=== PATIENT | female | born 1965 | race Caucasian/White ===

== ENCOUNTER → 2020-04-04 07:04 | Outpatient (CLI) | payer OTHER, SELFPAY ==
--- NOTE | 2020-04-04 07:08 | BI_ITS ---
MAMMOGRAPHY - BILATERAL SCREENING REASON FOR EXAM: Female, 54 years old. Routine annual screening examination. PERTINENT HISTORY: Non-contributory. TECHNIQUE: Digital bilateral breast carlos (3D mammographic acquisition) in the CC and MLO projections. 2-D mediolateral oblique (MLO) and craniocaudad (CC) views of both breasts were obtained. CAD: Full Field Digital Mammography with Computer Added Detection was performed. COMPARISON: Comparison is made with prior outside examination dated 05/26/2018. FINDINGS: Breast Composition: There are scattered areas of fibroglandular density. There are no dominant masses or suspicious calcifications. There is a stable 8.9 mm nodule in the anterior upper lateral aspect of the right breast. A tissue marker is seen within the from prior biopsy. No other significant abnormalities are identified. There has been no significant change since the prior study. BI/SCREEN MAMM (CAD) W/CARLOS BILAT IMPRESSION: Stable bilateral screening mammogram. Yearly follow-up mammogram recommended. (A) ASSESSMENT CATEGORY: BIRADS Category 2: Benign. A letter regarding these results will be sent to the patient by the facility within 30 days. Approximately 10% of breast cancers are not detected by mammography. A normal mammogram should not delay biopsy of a clinically suspicious abnormality. [id number] Electronically Signed: Isaiah Rodarte, at 10:19 EST , Service support ,
== END ==
PROVIDERS: PCP Family Medicine; Referring Provider Family Medicine; Visit Provider Family Medicine
DX: Z12.31 Encounter for screening mammogram for malignant neoplasm of breast (principal)
CPT/HCPCS: 77063; 77067

== ENCOUNTER → 2021-10-23 | Outpatient (CLI) | payer OTHER, SELFPAY ==
--- NOTE | 2021-10-23 08:22 | BI_ITS ---
MAMMOGRAPHY - BILATERAL SCREENING REASON FOR EXAM: Female, 56 years old. Routine annual screening examination. PERTINENT HISTORY: Sister with breast cancer. TECHNIQUE: Digital bilateral breast carlos (3D mammographic acquisition) in the CC and MLO projections. 2-D mediolateral oblique (MLO) and craniocaudad (CC) views of both breasts were obtained. CAD: Full Field Digital Mammography with Computer Added Detection was performed. COMPARISON: Comparison is made with prior study dated 04/04/2020. FINDINGS: Breast Composition: There are scattered areas of fibroglandular density. There is a 1.1 cm nodule in the slightly upper deep lateral aspect of the right breast. Correlation with ultrasound is recommended. A tissue clip marker is once again seen within an 8 mm nodule in the anterior upper lateral aspect of the right breast. Stable small benign-appearing bilateral axillary lymph nodes. No other significant abnormalities are identified. BI/SCRN MAMM (CAD)W/CARLOS BILAT IMPRESSION: 1.1 cm nodule in the slightly upper deep lateral aspect of the right breast. Correlation with ultrasound is recommended. ASSESSMENT CATEGORY: BIRADS Category 0: Incomplete. Need additional imaging evaluation. A letter regarding these results will be sent to the patient by the facility within 30 days. Approximately 10% of breast cancers are not detected by mammography. A normal mammogram should not delay biopsy of a clinically suspicious abnormality. [id number] Electronically Signed: Isaiah Rodarte MD at 9:50 EDT ,
== END | disposition home or self-care (01) ==
LOC: OPBI 08:18
PROVIDERS: PCP Family Medicine; Visit Provider Family Medicine
DX: Z12.31 Encounter for screening mammogram for malignant neoplasm of breast (principal); Z80.3 Family history of malignant neoplasm of breast
CPT/HCPCS: 77063; 77067

== ENCOUNTER → 2021-10-28 | Outpatient (CLI) | payer OTHER, SELFPAY ==
--- NOTE | 2021-10-28 11:03 | US_ITS ---
STUDY: ULTRASOUND BREAST - RIGHT REASON FOR EXAM: Female, 56 years old. Abnormal screening mammogram. TECHNIQUE: Axial and longitudinal images of the RIGHT breast were performed with a high resolution ultrasound transducer. # OF IMAGES: 51 COMPARISON: Comparison is made with prior study dated 10/23/2021 and 04/04/2020. FINDINGS: RIGHT Breast: The lateral half of the right breast was examined by ultrasound. There is a 1 cm x 0.6 cm x 0.6 cm hypoechoic nodule at the 10 o''clock position of the breast at 5 cm from nipple. A tissue clip marker is seen within it in keeping with prior biopsy. US/Breast Limited Unilateral IMPRESSION: 1 cm x 0.6 x 0.8 cm hypoechoic nodule at the 10 o''clock position breast at 5 cm from nipple. A tissue clip marker is seen within the from prior biopsy. ASSESSMENT CATEGORY: BIRADS Category 2: Benign. A letter regarding these results will be sent to the patient by the facility within 30 days. Electronically Signed: Isaiah Rodarte MD at 13:31 EDT ,
== END | disposition home or self-care (01) ==
LOC: OPUS 11:21
PROVIDERS: PCP Family Medicine; Visit Provider Family Medicine
DX: N63.11 Unspecified lump in the right breast, upper outer quadrant (principal)
CPT/HCPCS: 76642

== ENCOUNTER → 2021-11-01 | Outpatient (CLI) | payer OTHER, SELFPAY ==
--- NOTE | 2021-11-01 09:05 | LIP_PTH ---
PATIENT: DELMIS BAIG LOC: [facility] U#:[id number] AGE/SX: 56/F ROOM: RE11/01/[address]: Dr. Serge Rushing MD : 1965 BED: DIS: 11/01/2021 SPEC #: [id number] RECD: 11/01/21 11:11 STATUS: JOHNY FABIAN #: [id number] ZOEY: 11/01/21 09:[address]: Serge Rushing DEPT: SURGICAL PATHOLOGY RECD BY: Damian Williamson ENTERED: 11/01/21 11:55 SP TYPE: LIPOMA OTHR DR: Dr. Marcos Coelho, DO Tissues: A - Soft tissues, NOS B - Soft tissues, NOS Procedures: Surgery Specimen Level III HEADER OPERATION: Excision lipoma right upper arm and left mid back PRE-OP DIAGNOSIS: Multiple lipomas TISSUE SUBMITTED: A ? Right upper arm, B ? Left mid back MICROSCOPIC DIAGNOSIS A. Right upper arm lesion, excision: Mature adipose tissue, consistent with lipoma. B. Left mid back lesion, excision: Angiolipoma. ADDIE:mone 11/04/2021 MICROSCOPIC DESCRIPTION Slides are reviewed. GROSS DESCRIPTION A - Received in fixative is one container labeled with the patient's name and designated right arm. The specimen consists of a lobulated piece of marie-yellow adipose tissue measuring 2.5 x 2 x 1.5 cm. Sections reveal yellow adipose cut surfaces without area of necrosis, cystic degeneration or hemorrhage. Latent Print Examiner sections are submitted in two cassettes. B - Received in fixative is one container labeled with the patient's name and designated left mid back. The specimen consists of multiple pieces of yellow adipose tissue that in aggregate measure 4.5 x 3.5 x 1.5 cm. Sections of the larger pieces reveal yellow adipose cut surfaces without area of hemorrhage, necrosis or cystic degeneration. Latent Print Examiner sections are submitted in two cassettes. / ADDIE:mone 11/01/2021 TC:1 CPT: 44252 x2
== END | disposition home or self-care (01) ==
LOC: LABSPEC 11:28
PROVIDERS: PCP Family Medicine; Referring Provider Surgery; Visit Provider Surgery
DX: D17.21 Benign lipomatous neoplasm of skin and subcutaneous tissue of right arm (principal); D17.1 Benign lipomatous neoplasm of skin and subcutaneous tissue of trunk
CPT/HCPCS: 88304